=== PATIENT | male | born 1975 | race Caucasian/White ===

== ENCOUNTER 2016-12-12 10:59 | Emergency (ER) | payer BC, MEDICAID ==
[2016-12-12] MEDS ORDERED: Sodium Chloride 0.9% 1,000 ML IV ONE (11:43)
[2016-12-12] MEDS ORDERED: Alum Hydrox/Mag Hydrox/Simeth 15 ML, Lidocaine 2% 15 ML PO ONE ×2 (11:43)
[2016-12-12] MEDS ORDERED: Ondansetron 4 MG/2 ML SDV IVPUSH ONE (11:44)
[2016-12-12] MEDS ORDERED: Morphine 4 MG/ML Syringe IVPUSH ONE (11:44)
[2016-12-12] MEDS ORDERED: Sodium Chloride 0.9% 10 ML Syringe FLUSH PRN (11:44)
[2016-12-12 12:20] VITALS: BP 154/97
[2016-12-12] MEDS ORDERED: Iopamidol 612 MG/ML 150 ML Bottle IV PRN (12:26)
--- NOTE | 2016-12-12 12:33 | EDM.PDOC ---
ED HPI GENERAL MEDICAL PROBLEM - General Chief Complaint: Abdominal Pain Stated Complaint: STOMACH PAIN Time Seen by Provider: 12/12/16 11:30 Source of Information: Reports: Patient History Limitations: Reports: No Limitations - History of Present Illness INITIAL COMMENTS - FREE TEXT/NARRATIVE: Med is a 41 year old male who presents to the ED today with c/o abdominal pain and increased stomach acid for the last 2-3 weeks. Patient has been taking extra prilosec and tylenol without relief. Patient endorses some mild constipation, he denies any diarrhea or nausea/vomiting other than the stomach acid at night time. Patient denies any fever, chills. Patient has extensive abdominal hx including gastric bypass surgery [place] [address] Roland, he has also had a small bowel obstruction/intussusception and resection. Patient has hx of Cholecystectomy and appendectomy. Patient most recently had an incisional hernial repair. Left Middle Abdomen Pain Score (Numeric/FACES): 8 - Related Data Allergies Allergy/AdvReac Type Severity Reaction Status Date / Time No Known Allergies Allergy Verified 07/17/16 10:10 Home Meds: Home Meds Ca Carbonate/Vitamin D3/Vit K [Calcium + D Soft Chewable Tab] 1 each PO BID [History] Cyanocobalamin (Vitamin B-12) [Vitamin B-12] 1,000 mcg SL DAILY 09/22/13 [ History] Omeprazole [Prilosec] 40 mg PO BID 09/22/13 [History] Pedi Multivit #22/Vit D3/Vit K [Multivitamins Chewables Tablet] 1 each PO BID [History] Vitamin B Complex 1 tab PO DAILY 09/22/13 [History] Cholecalciferol (Vitamin D3) [Vitamin D3] 3,000 unit PO DAILY 07/17/16 [History] Diclofenac Sodium [Voltaren 1% Gel] 1 applic TP QID 07/17/16 [History] Iron,Carbonyl/Ascorbic Acid [Vitron-C Tablet] 1 tab PO DAILY 07/17/16 [History] Sertraline [Zoloft] 150 mg PO DAILY 07/17/16 [History] Magnesium Hydroxide [Milk of Magnesia] 30 ml PO DAILY #2 ml 07/23/16 [Rx] Sennosides/Docusate Sodium [Senna-S] 1 - 2 tab PO DAILY #100 tablet 07/23/16 [Rx ] Past Medical History HEENT History: Reports: Impaired Vision, Other (See Below) Other HEENT History: glasses. Ringing in the ears Respiratory History: Reports: Intubation, Previous Gastrointestinal History: Reports: Bowel Obstruction, Cholelithiasis, GERD, Hemorrhoids Musculoskeletal History: Reports: Arthritis, Back Pain, Chronic, Fracture Other Musculoskeletal History: left shoulder scapula fracture, no surgery rib nose finger Neurological History: Reports: Concussion, Migraines Psychiatric History: Reports: Anxiety, Depression, Panic Attack Endocrine/Metabolic History: Reports: Obesity/BMI 30+, Vitamin D Deficiency Hematologic History: Reports: Anemia, B12 Deficiency, Iron Deficiency Other Hematologic History: surgical related b12 def - takes b12 inj q month Dermatologic History: Reports: Other (See Below) Other Dermatologic History: Panniculectomy. tattoos - Infectious Disease History Infectious Disease History: Reports: Chicken Pox - Past Surgical History GI Surgical History: Reports: Appendectomy, Bariatric Procedure, Cholecystectomy , Colon, Colonoscopy, EGD, Hernia Repair/Other, Small Bowel Neurological Surgical History: Reports: None Social & Family History - Family History HEENT: Reports: None Cardiac: Reports: Hypertension, MS GI: Reports: None : Reports: None Musculoskeletal: Reports: Arthritis Neurological: Reports: None Psychiatric: Reports: None Endocrine/Metabolic: Reports: Diabetes, Type I Oncologic: Reports: Other (See Below) Other Oncologic Family History: unknown - Tobacco Use Smoking Status *Q: Former Smoker Years of Tobacco use: 15 Packs/Tins Daily: 1.5 Used Tobacco, but Quit: Yes Month Tobacco Last Used: many years ago Second Hand Smoke Exposure: Yes - Caffeine Use Caffeine Use: Reports: Coffee Other Caffeine Use: 1 cup coffee/day Caffeine Use Comment: 2 cups per day - Alcohol Use Days Per Week of Alcohol Use: 0 Number of Drinks Per Day: 2 Total Drinks Per Week: 0 - Recreational Drug Use Recreational Drug Use: No - Living Situation & Occupation Occupation: Employed ED ROS GENERAL - Review of Systems Review Of Systems: See Below Constitutional: Reports: Decreased Appetite HEENT: Reports: No Symptoms Respiratory: Reports: No Symptoms Cardiovascular: Reports: No Symptoms Endocrine: Reports: No Symptoms GI/Abdominal: Reports: Abdominal Pain, Constipation, Other (Increase in Gastric Acid) : Reports: No Symptoms Musculoskeletal: Reports: No Symptoms Skin: Reports: No Symptoms Neurological: Reports: No Symptoms Psychiatric: Reports: No Symptoms Hematologic/Lymphatic: Reports: No Symptoms Immunologic: Reports: No Symptoms, Seasonal Allergy ED EXAM, GI/ABD - Physical Exam Exam: See Below Exam Limited By: No Limitations General Appearance: Alert, WD/WN, No Apparent Distress Throat/Mouth: Normal Inspection, Normal Oropharynx Head: No: Sinus Tenderness Neck: Normal Inspection, Supple, Non-Tender Respiratory/Chest: No Respiratory Distress, Lungs Clear Cardiovascular: Normal Peripheral Pulses, Regular Rate, Rhythm GI/Abdominal: Normal Bowel Sounds, Soft, No Organomegaly, Tenderness (left upper quadrant, mild right upper quadrant). No: Non-Tender (Male) Exam: Deferred Rectal (Males) Exam: Deferred Extremities: Normal Inspection Neurological: Alert, Oriented, CN II-XII Intact Psychiatric: Normal Affect, Normal Mood Skin Exam: Warm, Dry, Intact. No: Pallor Lymphatic: No Adenopathy Course - Vital Signs Text/Narrative:: Med is a 41 year old male who presents to the ED today with c/o 2-3 week hx of abdominal pain. Please refer to HPI and focused exam. Patient on exam is well hydrated, he is non-toxic appearing. Concerns for bowel obstruction given constipation hx, although unlikely with lack of nausea/vomiting. Hiatal hernia a possibility, no hx of. Like GERD is playing a role. PIV established and patient was given a liter of NS. He was given zofran for nausea, morphine for abdominal pain and a GI cocktail for his acid reflux. Blood work obtained, CBC returns unremarkable with a normal white count and HGB, CMP rturns within normal limits. Lipase is normal. CT scan obtained secondary to Patient's extensive abdominal hx and is negative for any acute findings. It is likely that patient's GERD is playing a role is his symptoms today. Given his reassuring lab work and negative CT scan, I feel he is stable to be discharged home. I discussed with patient stopping his Prilosec and we will start a trial of Protonix. He can take Miralax for constipation which he already has at home. Patient did ask for "something stronger for pain". He reports he has Tylenol #4 at home, I informed patient I will not be prescribing him any narcotics today for his abdominal pain and if symptoms worsen he needs to return to the ED. I did ask patient to call Dr. Roland on Wednesday to schedule follow up appt. Patient is agreeable to plan of care and questions were answered prior to discharge. Patient discharged in stable condition. Last Recorded V/S: Last Vital Signs Temp 36.7 C 12/12/16 11:14 Pulse 81 12/12/16 11:14 Resp 16 12/12/16 11:14 BP 154/97 H 12/12/16 12:20 Pulse Ox 97 12/12/16 11:14 - Orders/Labs/Meds Orders: Active Orders 24 hr Category Date Time Status Peripheral IV Care [RC] . DIRECTED Care 12/12/16 11:44 Active Abdomen Pelvis w Cont [CT] Stat Exams 12/12/16 11:45 Taken Iopamidol [Isovue-300 (61%)] Med 12/12/16 12:26 Active 141 ml IV . DIRECTED PRN Sodium Chloride 0.9% [Normal Saline] 83 ml Med 12/12/16 12:30 Active IV ASDIRECTED Sodium Chloride 0.9% [Saline Flush] Med 12/12/16 11:44 Active 10 ml FLUSH ASDIRECTED PRN Peripheral IV Insertion Adult [OM.PC] Routine Oth 12/12/16 11:44 Ordered Medication Orders Sodium Chloride (Normal Saline) 83 mls @ 3.5 mls/sec IV ASDIRECTED LIEN Last Admin: 12/12/16 12:43 Dose: 3.5 mls/sec Iopamidol (Isovue-300 (61%)) 141 ml IV . DIRECTED PRN PRN Reason: RADIOLOGY EXAM Stop: 12/13/16 12:27 Last Admin: 12/12/16 12:43 Dose: 141 ml Sodium Chloride (Saline Flush) 10 ml FLUSH ASDIRECTED PRN PRN Reason: Keep Vein Open Last Admin: 12/12/16 12:19 Dose: 10 ml Labs: Laboratory Tests 12/12/16 12/12/16 Range/Units 11:44 12:00 WBC 6.1 (4.5-11.0) K/uL RBC 5.19 (4.30-5.90) M/uL Hgb 13.8 (12.0-15.0) g/dL Hct 42.9 (40.0-54.0) % MCV 83 (80-98) fL MCH 27 (27-31) pg MCHC 32 (32-36) % Plt Count 331 (150-400) K/uL Neut % (Auto) 64 (36-66) % Lymph % (Auto) 29 (24-44) % [place] % (Auto) 6 (2-6) % Eos % (Auto) 1 L (2-4) % Baso % (Auto) 1 (0-1) % Sodium 143 (140-148) mmol/L Potassium 4.1 (3.6-5.2) mmol/L Chloride 106 (100-108) mmol/L Carbon Dioxide 26 (21-32) mmol/L Anion Gap 10.6 (5.0-14.0) mmol/L BUN 15 (7-18) mg/dL Creatinine 0.8 (0.8-1.3) mg/dL Est Cr Clr Drug Dosing 110.76 mL/min Estimated GFR (MDRD) > 60 (>60) Glucose 85 (74-106) mg/dL Calcium 9.2 (8.5-10.1) mg/dL Total Bilirubin 0.2 (0.2-1.0) mg/dL AST 24 (15-37) U/L ALT 40 (12-78) U/L Alkaline Phosphatase 108 (46-116) U/L Total Protein 7.6 (6.4-8.2) g/dL Albumin 4.0 (3.4-5.0) g/dL Globulin 3.6 H (2.3-3.5) g/dL Albumin/Globulin Ratio 1.1 L (1.2-2.2) Lipase 209 (73-393) U/L Meds: Medications Generic Name Dose Route Start Last Admin Trade Name Freq PRN Reason Stop Dose Admin Sodium Chloride 83 mls @ 3.5 mls/sec 12/12/16 12:30 12/12/16 12:43 Normal Saline IV 3.5 mls/sec ASDIRECTED LIEN Administration Iopamidol 141 ml 12/12/16 12:26 12/12/16 12:43 Isovue-300 (61%) IV 12/13/16 12:27 141 ml . DIRECTED PRN Administration RADIOLOGY EXAM Sodium Chloride 10 ml 12/12/16 11:44 12/12/16 12:19 Saline Flush FLUSH 10 ml ASDIRECTED PRN Administration Keep Vein Open Discontinued Medications Generic Name Dose Route Start Last Admin Trade Name Freq PRN Reason Stop Dose Admin Al Hydroxide/Mg Hydroxide 15 0 ml 12/12/16 11:43 12/12/16 12:10 ml/ Lidocaine HCl 15 ml PO 12/12/16 11:44 30 ml ONETIME ONE Administration Sodium Chloride 1,000 mls @ 999 mls/hr 12/12/16 11:43 12/12/16 12:18 Normal Saline IV 12/12/16 12:43 999 mls/hr .BOLUS ONE Administration Morphine Sulfate 4 mg 12/12/16 11:44 12/12/16 12:11 Morphine IVPUSH 12/12/16 11:45 4 mg ONETIME ONE Administration Ondansetron HCl 4 mg 12/12/16 11:44 12/12/16 12:11 Zofran IVPUSH 12/12/16 11:45 4 mg ONETIME ONE Administration Departure - Departure Time of Disposition: 14:00 Disposition: Admitted As Inpatient 67 Condition: Good Clinical Impression: Abdominal pain of unknown cause GERD (gastroesophageal reflux disease) Qualifiers: Esophagitis presence: esophagitis presence not specified Qualified Code(s): K21.9 - Gastro-esophageal reflux disease without esophagitis - Discharge Information Instructions: Abdominal Pain, Adult, [id number], Constipation, Adult, Easy-to -Read, Gastroesophageal Reflux Disease, Adult Referrals: Jovanni Hutchison MD [Primary Care Provider] - Forms: ED Department Discharge Additional Instructions: Stop the Prilosec Start Protonix Stay well hydrated. Take Miralax for constipation Call Dr. Roland on Wednesday to schedule follow up appointment. Return to the ED with any complications. - My Orders Last 24 Hours: My Active Orders 12/12/16 11:44 Peripheral IV Care [RC] . DIRECTED Sodium Chloride 0.9% [Saline Flush] 10 ml FLUSH ASDIRECTED PRN Peripheral IV Insertion Adult [OM.PC] Routine 12/12/16 11:45 Abdomen Pelvis w Cont [CT] Stat 12/12/16 12:26 Iopamidol [Isovue-300 (61%)] 141 ml IV . DIRECTED PRN 12/12/16 12:30 Sodium Chloride 0.9% [Normal Saline] 83 ml IV ASDIRECTED - Assessment/Plan Last 24 Hours: My Active Orders 12/12/16 11:44 Peripheral IV Care [RC] . DIRECTED Sodium Chloride 0.9% [Saline Flush] 10 ml FLUSH ASDIRECTED PRN Peripheral IV Insertion Adult [OM.PC] Routine 12/12/16 11:45 Abdomen Pelvis w Cont [CT] Stat 12/12/16 12:26 Iopamidol [Isovue-300 (61%)] 141 ml IV . DIRECTED PRN 12/12/16 12:30 Sodium Chloride 0.9% [Normal Saline] 83 ml IV ASDIRECTED
== END 2016-12-12 13:55 | disposition critical access hospital (66) ==
LOC: JP.ED 10:59
DX: R10.9 Unspecified abdominal pain (principal); K21.9 Gastro-esophageal reflux disease without esophagitis; Z98.890 Other specified postprocedural states; Z79.899 Other long term (current) drug therapy; D64.9 Anemia, unspecified; E53.8 Deficiency of other specified B group vitamins; E61.1 Iron deficiency; Z98.84 Bariatric surgery status; F41.9 Anxiety disorder, unspecified; F32.9 Major depressive disorder, single episode, unspecified; Z87.891 Personal history of nicotine dependence
CPT/HCPCS: 36415; 74177; 80053; 83690; 85025; 96361; 96374; 96375; 99285; A9270; J2270; J2405; J7030; J7040; J7050

== ENCOUNTER 2017-01-08 08:40 | Day surgery (SDC) | payer MEDICAID ==
[2017-01-08] MEDS ORDERED: diphenhydrAMINE 50 MG/ML SDV IVPUSH PRN (08:54)
[2017-01-08] MEDS ORDERED: Dextrose 5%-Lactated Ringers 1,000 ML IV SCH (09:15)
[2017-01-08] MEDS ORDERED: Propofol 200 MG/20 ML SDV ONE ×2 (09:27→10:48)
[2017-01-08] MEDS ORDERED: fentaNYL 100 MCG/2 ML SDV ONE (09:27)
[2017-01-08] MEDS ORDERED: Midazolam 1 MG/ML 2 ML SDV ONE (09:27)
[2017-01-08] MEDS: Glycopyrrolate 0.2 MG/ML 2 ML SDV IVPUSH ONE ×2 (09:43→10:30)
[2017-01-08] MEDS ORDERED: Hydrocortisone Sodium Succinate 100 MG/2 ML SDV IVPUSH PRN (11:00)
[2017-01-08] MEDS ORDERED: Famotidine 20 MG/2 ML SDV IVPUSH PRN (11:00)
[2017-01-08 12:34] VITALS: BP 98/57
--- NOTE | 2017-01-11 10:38 | OR ---
DATE OF PROCEDURE: 01/08/2017 PREOPERATIVE DIAGNOSIS: Iron deficiency anemia. POSTOPERATIVE DIAGNOSES: 1. Iron deficiency anemia associated with no bleeding source identified on upper GI endoscopy or colonoscopy. 2. Probable partial small bowel obstruction (bile within Lili limb). OPERATIVE PROCEDURES: 1. Upper GI endoscopy with biopsies of gastric pouch for CLOtest. 2. Flexible colonoscopy. ANESTHESIA: IV sedation. INDICATION FOR PROCEDURE: This 41-year-old male presented with some ongoing iron deficiency anemia with ferritin today of 7. The plan is to proceed with upper and lower endoscopy to try to identify any GI tract bleeding site. Potential risks of the procedure including bleeding and perforation were discussed, and the patient wishes to proceed. DETAILS OF PROCEDURE: The patient was taken to the operating room and placed in a left lateral decubitus position. IV sedation was administered, after which the upper GI endoscope was passed orally through the length of the esophagus into the gastric pouch, from there through the gastrojejunostomy roughly 30 cm into the Lili limb. Overall, the upper end of GI endoscope showed no areas of inflammation, reddening, or any likely bleeding source with the mucosa all being intact and not inflamed. The only positive finding on this exam was that of some bile pooling within the Lili limb beginning around 10 or 15 cm from the gastrojejunostomy. This would be indicative of possible partial bowel obstruction with the bile backing up through the Lili limb. Biopsies were obtained from the gastric pouch and sent for CLOtest for H. pylori. Minimal bleeding from the biopsy sites was seen, and the procedure then concluded. Attention was then taken to the colonoscopy. The initial digital rectal exam was performed and was unremarkable. Colonoscope was passed to the level of the cecum. The prep was fair with there being a fair bit of liquid and solid stool present, but the vast majority of the surfaces were adequately seen, and there were otherwise no abnormalities nowhere noted. The scope was then withdrawn, the above findings were reconfirmed, and the procedure was then concluded. The patient will be following up with Haven Regalado in [facility] on 02/09/2017. The patient is receiving a Feraheme infusion of 510 mg of the iron today and we will schedule to have a repeat one done a few days from now. He will be seen in followup in [place] as noted above and will obtain a ferritin and hemoglobin at that time. This is a case that if he continues to show signs of GI blood loss, one would need to consider possible bleeding from the bypassed portion of the stomach and/or duodenum. Additional areas noted above, the patient probably has some degree of partial small bowel obstruction with the bowel backing up, but at this time, this probably falls short of needing an operative intervention. Trey Roland MD /[id number]
== END 2017-01-08 13:20 | disposition home or self-care (01) ==
LOC: JP.SDS 08:40
PROVIDERS: ATTEND Surgery
DX: D50.9 Iron deficiency anemia, unspecified (principal); K90.9 Intestinal malabsorption, unspecified; Z98.84 Bariatric surgery status
CPT/HCPCS: 43239; 45378; 87081; J2250; J2704; J3010; J7030; J7042; Q0138; J3490

== ENCOUNTER 2017-04-21 14:30 | Inpatient (IN) | payer MEDICAID ==
[2017-04-21] MEDS ORDERED: Sodium Chloride 0.9% 10 ML Syringe FLUSH PRN (16:56)
[2017-04-21] MEDS ORDERED: Iopamidol 612 MG/ML 150 ML Bottle IV SCH (17:00)
[2017-04-21] MEDS ORDERED: Sodium Chloride 0.9% 80 ML IV SCH (17:00)
--- NOTE | 2017-04-21 18:09 | EDM.PDOC ---
ED HPI GENERAL MEDICAL PROBLEM - General Chief Complaint: Abdominal Pain Stated Complaint: RUQ ABDOMINAL PAIN Time Seen by Provider: 04/21/17 15:51 Source of Information: Reports: Patient History Limitations: Reports: No Limitations - History of Present Illness INITIAL COMMENTS - FREE TEXT/NARRATIVE: This gentleman comes in for right upper quadrant abdominal pain. He said it's been going on a little bit for the past couple of weeks. Last night at about 7 PM it suddenly became very bad it's constant it's seems to have started after eating. He got nauseated but has not vomited. Started after eating beans and ham last night. He had a a Lili-en-Y a couple of years ago and shortly afterward had a cholecystectomy. He denies any fever. Had a bowel movement earlier today said it looked kind of dark but not black Right Upper Abdomen Pain Score (Numeric/FACES): 8 - Related Data Allergies Allergy/AdvReac Type Severity Reaction Status Date / Time No Known Allergies Allergy Verified 04/21/17 15:20 Home Meds: Home Meds Ca Carbonate/Vitamin D3/Vit K [Calcium + D Soft Chewable Tab] 1 each PO BID [History] Cyanocobalamin (Vitamin B-12) [Vitamin B-12] 1,000 mcg SL DAILY 09/22/13 [ History] Omeprazole [Prilosec] 40 mg PO BID 09/22/13 [History] Pedi Multivit #22/Vit D3/Vit K [Multivitamins Chewables Tablet] 1 each PO BID [History] Vitamin B Complex 1 tab PO DAILY 09/22/13 [History] Cholecalciferol (Vitamin D3) [Vitamin D3] 3,000 unit PO DAILY 07/17/16 [History] Diclofenac Sodium [Voltaren 1% Gel] 1 applic TP QID PRN 07/17/16 [History] Iron,Carbonyl/Ascorbic Acid [Vitron-C Tablet] 1 tab PO DAILY 07/17/16 [History] Sertraline [Zoloft] 150 mg PO DAILY 07/17/16 [History] Magnesium Hydroxide [Milk of Magnesia] 30 ml PO DAILY #2 ml 07/23/16 [Rx] Sennosides/Docusate Sodium [Senna-S] 1 - 2 tab PO DAILY #100 tablet 07/23/16 [Rx ] Acetaminophen with Codeine [Tylenol with Codeine #4 Tablet] 1 tab PO Q6H PRN 07/24 [History] Cyclobenzaprine [Flexeril] 10 mg PO TID PRN 01/06/17 [History] Past Medical History HEENT History: Reports: Impaired Vision, Other (See Below) Other HEENT History: glasses. Ringing in the ears Respiratory History: Reports: Intubation, Previous Gastrointestinal History: Reports: Bowel Obstruction, Cholelithiasis, GERD, Hemorrhoids Musculoskeletal History: Reports: Arthritis, Back Pain, Chronic, Fracture Other Musculoskeletal History: left shoulder scapula fracture, no surgery rib nose finger Neurological History: Reports: Concussion, Migraines Psychiatric History: Reports: Anxiety, Depression, Panic Attack Endocrine/Metabolic History: Reports: Obesity/BMI 30+, Vitamin D Deficiency Hematologic History: Reports: Anemia, B12 Deficiency, Iron Deficiency Other Hematologic History: surgical related b12 def - takes b12 inj q month Oncologic (Cancer) History: Reports: None Dermatologic History: Reports: Other (See Below) Other Dermatologic History: Panniculectomy. tattoos - Infectious Disease History Infectious Disease History: Reports: Chicken Pox - Past Surgical History GI Surgical History: Reports: Appendectomy, Bariatric Procedure, Cholecystectomy , Colon, Colonoscopy, EGD, Hernia Repair/Other, Small Bowel Neurological Surgical History: Reports: None Social & Family History - Family History HEENT: Reports: None Cardiac: Reports: Hypertension, [place] GI: Reports: None : Reports: None Musculoskeletal: Reports: Arthritis Neurological: Reports: None Psychiatric: Reports: None Endocrine/Metabolic: Reports: Diabetes, Type I Oncologic: Reports: Other (See Below) Other Oncologic Family History: unknown - Tobacco Use Smoking Status *Q: Former Smoker Years of Tobacco use: 15 Packs/Tins Daily: 1 Used Tobacco, but Quit: Yes Month Tobacco Last Used: November Second Hand Smoke Exposure: No - Caffeine Use Caffeine Use: Reports: Coffee Other Caffeine Use: 1 cup coffee/day Caffeine Use Comment: Drinks about 16 ounces of coffee daily - Alcohol Use Days Per Week of Alcohol Use: 0 Number of Drinks Per Day: 2 Total Drinks Per Week: 0 - Recreational Drug Use Recreational Drug Use: No - Living Situation & Occupation Occupation: Employed ED ROS GENERAL - Review of Systems Review Of Systems: ROS reveals no pertinent complaints other than HPI. ED EXAM, GI/ABD - Physical Exam Exam: See Below Exam Limited By: No Limitations General Appearance: Alert, Moderate Distress, Obese Eyes: Bilateral: Normal Appearance Nose: Normal Inspection Neck: Normal Inspection Respiratory/Chest: Lungs Clear Cardiovascular: Regular Rate, Rhythm, No Murmur GI/Abdominal Exam: Normal Bowel Sounds, Soft, Other (Fullness in right upper quadrant moderately tender increased resonance seems like it could be an obstruction) Back Exam: Normal Inspection Extremities: Normal Inspection Neurological: Alert, Oriented, No Motor/Sensory Deficits Psychiatric: Normal Affect Skin Exam: Warm, Dry Course - Vital Signs Last Recorded V/S: Last Vital Signs Temp 35.7 C 04/21/17 15:30 Pulse 92 04/21/17 15:30 Resp 16 04/21/17 15:30 BP 136/89 04/21/17 15:30 Pulse Ox 98 04/21/17 15:30 - Orders/Labs/Meds Orders: Active Orders 24 hr Category Date Time Status Abdomen Pelvis w Cont [CT] Stat Exams 04/21/17 16:53 Taken Iopamidol [Isovue-300 (61%)] Med 04/21/17 17:00 Active 142 ml IV . DIRECTED Sodium Chloride 0.9% [Normal Saline] 80 ml Med 04/21/17 17:00 Active IV ASDIRECTED Sodium Chloride 0.9% [Saline Flush] Med 04/21/17 16:56 Active 10 ml FLUSH ASDIRECTED PRN Medication Orders Sodium Chloride (Normal Saline) 80 mls @ 3 mls/sec IV ASDIRECTED LIEN Last Admin: 04/21/17 17:08 Dose: 3 mls/sec Iopamidol (Isovue-300 (61%)) 142 ml IV . DIRECTED LIEN Last Admin: 04/21/17 17:08 Dose: 142 ml Sodium Chloride (Saline Flush) 10 ml FLUSH ASDIRECTED PRN PRN Reason: Keep Vein Open Last Admin: 04/21/17 17:05 Dose: 10 ml Labs: Laboratory Tests 04/21/17 04/21/17 04/21/17 Range/Units 16:36 16:36 16:36 WBC 6.0 (4.5-11.0) K/uL RBC 5.15 (4.30-5.90) M/uL Hgb 16.0 H D (12.0-15.0) g/dL Hct 46.5 (40.0-54.0) % MCV 90 (80-98) fL MCH 31 (27-31) pg MCHC 34 (32-36) % Plt Count 278 (150-400) K/uL Neut % (Auto) 60 (36-66) % Lymph % (Auto) 30 (24-44) % Kaufman % (Auto) 8 H (2-6) % Eos % (Auto) 2 (2-4) % Baso % (Auto) 0 (0-1) % Sodium 143 (140-148) mmol/L Potassium 4.4 (3.6-5.2) mmol/L Chloride 104 (100-108) mmol/L Carbon Dioxide 32 (21-32) mmol/L Anion Gap 6.7 (5.0-14.0) mmol/L BUN 12 (7-18) mg/dL Creatinine 0.8 (0.8-1.3) mg/dL Est Cr Clr Drug Dosing 109.66 mL/min Estimated GFR (MDRD) > 60 (>60) Glucose 92 (74-106) mg/dL Calcium 9.7 (8.5-10.1) mg/dL Total Bilirubin 0.5 D (0.2-1.0) mg/dL AST 193 H D (15-37) U/L ALT 295 H (12-78) U/L Alkaline Phosphatase 124 H (46-116) U/L Total Protein 7.0 (6.4-8.2) g/dL Albumin 4.1 (3.4-5.0) g/dL Globulin 2.9 (2.3-3.5) g/dL Albumin/Globulin Ratio 1.4 (1.2-2.2) Amylase 41 (25-115) U/L Lipase 215 (73-393) U/L Urine Color Urine Appearance Urine pH (4.5-8.0) Ur Specific Burton (1.008-1.030) Urine Protein (NEGATIVE) mg/dL Urine Glucose (UA) (NEGATIVE) mg/dL Urine Ketones (NEGATIVE) mg/dL Urine Occult Blood (NEGATIVE) Urine Nitrite (NEGAITVE) Urine Bilirubin (NEGATIVE) Urine Urobilinogen (NORMAL) mg/dL Ur Leukocyte Esterase (NEGATIVE) Urine RBC (0-5) Urine WBC (0-5) Ur Epithelial Cells Amorphous Sediment Urine Bacteria Urine Mucus 04/21/17 Range/Units 16:59 WBC (4.5-11.0) K/uL RBC (4.30-5.90) M/uL Hgb (12.0-15.0) g/dL Hct (40.0-54.0) % MCV (80-98) fL MCH (27-31) pg MCHC (32-36) % Plt Count (150-400) K/uL Neut % (Auto) (36-66) % Lymph % (Auto) (24-44) % Kaufman % (Auto) (2-6) % Eos % (Auto) (2-4) % Baso % (Auto) (0-1) % Sodium (140-148) mmol/L Potassium (3.6-5.2) mmol/L Chloride (100-108) mmol/L Carbon Dioxide (21-32) mmol/L Anion Gap (5.0-14.0) mmol/L BUN (7-18) mg/dL Creatinine (0.8-1.3) mg/dL Est Cr Clr Drug Dosing mL/min Estimated GFR (MDRD) (>60) Glucose (74-106) mg/dL Calcium (8.5-10.1) mg/dL Total Bilirubin (0.2-1.0) mg/dL AST (15-37) U/L ALT (12-78) U/L Alkaline Phosphatase (46-116) U/L Total Protein (6.4-8.2) g/dL Albumin (3.4-5.0) g/dL Globulin (2.3-3.5) g/dL Albumin/Globulin Ratio (1.2-2.2) Amylase (25-115) U/L Lipase (73-393) U/L Urine Color Yellow Urine Appearance Clear Urine pH 6.5 (4.5-8.0) Ur Specific Burton 1.015 (1.008-1.030) Urine Protein Negative (NEGATIVE) mg/dL Urine Glucose (UA) Normal (NEGATIVE) mg/dL Urine Ketones Negative (NEGATIVE) mg/dL Urine Occult Blood Negative (NEGATIVE) Urine Nitrite Negative (NEGAITVE) Urine Bilirubin Negative (NEGATIVE) Urine Urobilinogen Normal (NORMAL) mg/dL Ur Leukocyte Esterase Negative (NEGATIVE) Urine RBC Not seen (0-5) Urine WBC Not seen (0-5) Ur Epithelial Cells Rare Amorphous Sediment Not seen Urine Bacteria Rare Urine Mucus Not seen Meds: Medications Generic Name Dose Route Start Last Admin Trade Name Freq PRN Reason Stop Dose Admin Sodium Chloride 80 mls @ 3 mls/sec 04/21/17 17:00 04/21/17 17:08 Normal Saline IV 3 mls/sec ASDIRECTED LIEN Administration Iopamidol 142 ml 04/21/17 17:00 04/21/17 17:08 Isovue-300 (61%) IV 142 ml . DIRECTED LIEN Administration Sodium Chloride 10 ml 04/21/17 16:56 04/21/17 17:05 Saline Flush FLUSH 10 ml ASDIRECTED PRN Administration Keep Vein Open - Radiology Interpretation Free Text/Narrative:: Abdominal CT shows surgical changes but no acute pathology - Re-Assessments/Exams Free Text/Narrative Re-Assessment/Exam: 04/21/17 18:[address] Trey Roland and he agrees this is probably a common bile duct stone. Patient was given the option of being sent off to [facility] or the [facility] versus having an open procedure here by Dr. Roland. Patient chooses to have the open procedure. Dr. Roland has given orders to admit this patient and I believe he is getting ultrasound of the common bile duct Departure - Departure Time of Disposition: 18:50 Disposition: Admitted As Inpatient 67 Condition: Fair Clinical Impression: Common bile duct calculus - Discharge Information Referrals: Jovanni Hutchison MD [Primary Care Provider] - Forms: ED Department Discharge - My Orders Last 24 Hours: My Active Orders 04/21/17 16:53 Abdomen Pelvis w Cont [CT] Stat 04/21/17 16:56 Sodium Chloride 0.9% [Saline Flush] 10 ml FLUSH ASDIRECTED PRN 04/21/17 17:00 Iopamidol [Isovue-300 (61%)] 142 ml IV . DIRECTED Sodium Chloride 0.9% [Normal Saline] 80 ml IV ASDIRECTED - Assessment/Plan Last 24 Hours: My Active Orders 04/21/17 16:53 Abdomen Pelvis w Cont [CT] Stat 04/21/17 16:56 Sodium Chloride 0.9% [Saline Flush] 10 ml FLUSH ASDIRECTED PRN 04/21/17 17:00 Iopamidol [Isovue-300 (61%)] 142 ml IV . DIRECTED Sodium Chloride 0.9% [Normal Saline] 80 ml IV ASDIRECTED
[2017-04-21] MEDS ORDERED: Ondansetron 4 MG/2 ML SDV IVPUSH PRN (20:22)
[2017-04-21] MEDS ORDERED: HYDROmorphone/Normal Saline 15 MG/30 ML PCA IV SCH (20:30)
[2017-04-21] MEDS ORDERED: hydrOXYzine HCl 100 MG/2 ML SDV IM ONE (22:07)
[2017-04-21] MEDS ORDERED: Meperidine PF 100 MG/ML Syringe IM ONE (22:07)
[2017-04-21] MEDS: Dextrose 5%-Lactated Ringers 1,000 ML IV SCH (23:00)
[2017-04-22] MEDS ORDERED: Lidocaine 2% Jelly 10 ML Urojet MUCMEM ONE (05:23)
[2017-04-22] MEDS: Dextrose 5%-Lactated Ringers 1,000 ML IV SCH ×2 (05:32→14:27)
[2017-04-22] MEDS ORDERED: Pantoprazole 40 MG Vial IVPUSH SCH (07:30)
[2017-04-22] MEDS ORDERED: Naloxone 0.4 MG/ML SDV IV PRN (07:56)
[2017-04-22] MEDS: Tamsulosin 0.4 MG Cap.ER PO SCH ×2 (08:51→16:54)
--- NOTE | 2017-04-22 09:14 | PCM.HP ---
H&P History of Present Illness - General Date of Service: 04/22/17 Admit Problem/Dx: Admission Diagnosis/Problem Admission Diagnosis/Problem Abdominal pain Med called the clinic yesterday stating he had right upper quadrant abdominal pain that didn't radiate. The pain started on 04/20/17 and has been steadily getting worse. He is taking Tylenol #4 on a regular basis. Source of Information: Patient History Limitations: Reports: Altered Mental Status (on pain medication) - History of Present Illness Onset of Symptoms: Reports: Gradual Duration of Symptoms: Reports: Getting Worse Location: Reports: Abdomen Quality: Reports: Pressure, Stabbing, Throbbing Improves with: Reports: Medication (VALUE ENGINEER pain medication) Worsens with: Reports: Eating, Movement Associated Symptoms: Reports: No Other Symptoms Right Upper Abdomen Pain Score (Numeric/FACES): 2 (With pain medication) - Related Data Allergies/Adverse Reactions: Allergies Allergy/AdvReac Type Severity Reaction Status Date / Time No Known Allergies Allergy Verified 04/21/17 15:20 Home Medications: Home Meds Ca Carbonate/Vitamin D3/Vit K [Calcium + D Soft Chewable Tab] 1 each PO BID [History] Cyanocobalamin (Vitamin B-12) [Vitamin B-12] 1,000 mcg SL DAILY 09/22/13 [ History] Omeprazole [Prilosec] 40 mg PO BID 09/22/13 [History] Pedi Multivit #22/Vit D3/Vit K [Multivitamins Chewables Tablet] 1 each PO BID [History] Vitamin B Complex 1 tab PO DAILY 09/22/13 [History] Cholecalciferol (Vitamin D3) [Vitamin D3] 3,000 unit PO DAILY 07/17/16 [History] Diclofenac Sodium [Voltaren 1% Gel] 1 applic TP QID PRN 07/17/16 [History] Iron,Carbonyl/Ascorbic Acid [Vitron-C Tablet] 1 tab PO DAILY 07/17/16 [History] Sertraline [Zoloft] 150 mg PO DAILY 07/17/16 [History] Magnesium Hydroxide [Milk of Magnesia] 30 ml PO DAILY #2 ml 07/23/16 [Rx] Sennosides/Docusate Sodium [Senna-S] 1 - 2 tab PO DAILY #100 tablet 07/23/16 [Rx ] Acetaminophen with Codeine [Tylenol with Codeine #4 Tablet] 1 tab PO Q6H PRN 07/24 [History] Cyclobenzaprine [Flexeril] 10 mg PO TID PRN 01/06/17 [History] Past Medical History HEENT History: Reports: Impaired Vision, Other (See Below) Other HEENT History: glasses. Ringing in the ears Respiratory History: Reports: Intubation, Previous Gastrointestinal History: Reports: Bowel Obstruction, Cholelithiasis, GERD, Hemorrhoids Musculoskeletal History: Reports: Arthritis, Back Pain, Chronic, Fracture Other Musculoskeletal History: left shoulder scapula fracture, no surgery rib nose finger Neurological History: Reports: Concussion, Migraines Psychiatric History: Reports: Anxiety, Depression, Panic Attack Endocrine/Metabolic History: Reports: Obesity/BMI 30+, Vitamin D Deficiency Hematologic History: Reports: Anemia, B12 Deficiency, Iron Deficiency Other Hematologic History: surgical related b12 def - takes b12 inj q month Oncologic (Cancer) History: Reports: None Dermatologic History: Reports: Other (See Below) Other Dermatologic History: Panniculectomy. tattoos - Infectious Disease History Infectious Disease History: Reports: Chicken Pox - Past Surgical History GI Surgical History: Reports: Appendectomy, Bariatric Procedure, Cholecystectomy , Colon, Colonoscopy, EGD, Hernia Repair/Other, Small Bowel Neurological Surgical History: Reports: None Social & Family History - Family History HEENT: Reports: None Cardiac: Reports: Hypertension, [place] GI: Reports: None : Reports: None Musculoskeletal: Reports: Arthritis Neurological: Reports: None Psychiatric: Reports: None Endocrine/Metabolic: Reports: Diabetes, Type I Oncologic: Reports: Other (See Below) Other Oncologic Family History: unknown - Tobacco Use Smoking Status *Q: Never Smoker Years of Tobacco use: 15 Packs/Tins Daily: 1 Used Tobacco, but Quit: Yes Month Tobacco Last Used: November Second Hand Smoke Exposure: Yes - Caffeine Use Caffeine Use: Reports: Coffee Other Caffeine Use: 1 cup coffee/day Caffeine Use Comment: Drinks about 16 ounces of coffee daily - Alcohol Use Days Per Week of Alcohol Use: 0 Number of Drinks Per Day: 2 Total Drinks Per Week: 0 - Recreational Drug Use Recreational Drug Use: No - Living Situation & Occupation Occupation: Employed H&P Review of Systems - Review of Systems: Review Of Systems: See Below General: Reports: Fatigue, Decreased Appetite HEENT: Reports: No Symptoms Pulmonary: Reports: No Symptoms Cardiovascular: Reports: No Symptoms Gastrointestinal: Reports: Abdominal Pain, Decreased Appetite Genitourinary: Reports: No Symptoms Musculoskeletal: Reports: Arm Pain, Back Pain, Joint Pain Skin: Reports: No Symptoms Psychiatric: Reports: Depression Neurological: Reports: No Symptoms Hematologic/Lymphatic: Reports: Anemia (history of anemia) Immunologic: Reports: No Symptoms Exam - Exam Exam: See Below - Vital Signs Vital Signs: Last Vital Signs Temp 96.7 F 04/22/17 07:40 Pulse 71 04/22/17 07:40 Resp 16 04/22/17 07:40 BP 120/63 04/22/17 07:40 Pulse Ox 92 L 04/22/17 07:47 Weight: 200 lb 7 oz - Exam Quality Assessment: Urinary Catheter, DVT Prophylaxis General: Sedated, Lethargic HEENT: PERRLA Neck: Supple, Trachea Midline Lungs: Clear to Auscultation, Normal Respiratory Effort Cardiovascular: Regular Rate, Regular Rhythm GI/Abdominal Exam: Soft, Tender (right upper quadrant) (Male) Exam: Deferred Rectal (Males) Exam: Deferred Extremities: Normal Inspection Skin: Warm, Dry, Intact Neurological: Cranial Nerves Intact Neuro Extensive - Mental Status: Alert, Slow Response to Commands Neuro Extensive - Motor, Sensory, Reflexes: CN II-XII Intact Psychiatric: Labile Mood - Patient Data Lab Results Last 24 hrs: Laboratory Results - last 24 hr 04/22/17 04/22/17 Range/Units 03:30 03:30 WBC 4.4 L (4.5-11.0) K/uL RBC 4.78 (4.30-5.90) M/uL Hgb 14.9 (12.0-15.0) g/dL Hct 43.1 (40.0-54.0) % MCV 90 (80-98) fL MCH 31 (27-31) pg MCHC 35 (32-36) % Plt Count 170 (150-400) K/uL Sodium 140 (140-148) mmol/L Potassium 3.9 (3.6-5.2) mmol/L Chloride 103 (100-108) mmol/L Carbon Dioxide 29 (21-32) mmol/L Anion Gap 8.0 (5.0-14.0) mmol/L BUN 12 (7-18) mg/dL Creatinine 0.7 L (0.8-1.3) mg/dL Est Cr Clr Drug Dosing 125.32 mL/min Estimated GFR (MDRD) > 60 (>60) Glucose 55 L (74-106) mg/dL Calcium 9.3 (8.5-10.1) mg/dL Phosphorus 5.1 H (2.5-4.9) mg/dL Magnesium 2.1 (1.8-2.4) mg/dL Total Bilirubin 0.7 (0.2-1.0) mg/dL AST 647 H D (15-37) U/L ALT 594 H (12-78) U/L Alkaline Phosphatase 177 H (46-116) U/L Total Protein 6.5 (6.4-8.2) g/dL Albumin 3.8 (3.4-5.0) g/dL Globulin 2.7 (2.3-3.5) g/dL Albumin/Globulin Ratio 1.4 (1.2-2.2) Result Diagrams: 04/22/17 03:30 04/22/17 03:30 *Q Meaningful Use (ADM) - VTE *Q VTE Criteria *Q: - Stroke *Q Stroke Criteria *Q: - AMI *Q AMI Criteria *Q: - Problem List (1) Common bile duct calculus SNOMED Code(s): 731427015 ICD Code: K80.50 - CALCULUS OF BILE DUCT W/O CHOLANGITIS OR CHOLECYST W/O OBST Status: Acute Current Visit: Yes (2) Opioid use agreement exists SNOMED Code(s): 382639420 ICD Code: Z02.89 - ENCOUNTER FOR OTHER ADMINISTRATIVE EXAMINATIONS Status: Chronic Current Visit: No Onset Date: ~11/25/16 Problem List Initiated/Reviewed/Updated: Yes Orders Last 24hrs: Active Orders 24 hr Category Date Time Status Ambulate [RC] QID Care 04/21/17 20:18 Active Communication Order [RC] ROUTINE Care 04/22/17 07:28 Active Parkinson Catheter Insertion [Insert Urinary Catheter] [OM. Care 04/22/17 05:30 Ordered PC] Q24H Urinary Catheter Assessment [RC] ASDIRECTED Care 04/22/17 05:30 Active Vital Signs [RC] Q4H Care 04/21/17 20:18 Active NPO After Midnight [Nothing per Oral After Midnight Diet 04/22/17 Breakfast Active Diet] [DIET] Cholangiopancreatography [MR] Routine Exams 04/22/17 07:00 Ordered AMYLASE [CHEM] Routine Lab 04/23/17 04:00 Ordered CBC W/O DIFF,HEMOGRAM [HEME] Timed Lab 04/23/17 04:00 Ordered COMPREHENSIVE METABOLIC PN,CMP [CHEM] Timed Lab 04/23/17 04:00 Ordered LIPASE [CHEM] Routine Lab 04/23/17 04:00 Ordered MAGNESIUM [CHEM] Timed Lab 04/23/17 04:00 Ordered PHOSPHORUS [CHEM] Timed Lab 04/23/17 04:00 Ordered Dextrose 5%-Lactated Ringers 1,000 ml Med 04/21/17 20:30 Active IV ASDIRECTED FLU Vacc [id number] 36Mos UP/PF [Fluzone Quad [id number]] Med 04/22/17 23:45 Once 60 mcg IM .ONCE ONE HYDROmorphone/Normal Saline [Dilaudid VALUE ENGINEER 15 MG in NS Med 04/22/17 07:55 Active 30 ML] 0 mg IV ASDIRECTED PRN Naloxone [Narcan] Med 04/22/17 07:56 Active 0.1 mg IV ASDIRECTED PRN Ondansetron [Zofran] Med 04/21/17 20:22 Active 4 mg IVPUSH Q4H PRN Pantoprazole [ProTONIX IV] Med 04/22/17 07:30 Active 40 mg IVPUSH Q12H Tamsulosin [Flomax] Med 04/22/17 08:00 Active 0.4 mg PO BIDPC SCD [Sequential Compression Device] [OM.PC] Routine Oth 04/21/17 20:19 Ordered Medication Orders Hydromorphone HCl (Dilaudid Back End Developer 15 Mg In Ns 30 Ml) 0 mg IV ASDIRECTED PRN; Protocol PRN Reason: Pain Dextrose/Lactated Ringer's (Dextrose 5%-Lactated Ringers) 1,000 mls @ 125 mls/ hr IV ASDIRECTED LIEN Last Admin: 04/22/17 05:32 Dose: 125 mls/hr Infusion: 04/22/17 05:32 Dose: 125 mls/hr Admin: 04/21/17 23:00 Dose: 125 mls/hr Influenza Virus Vaccine (Fluzone Quad ) 60 mcg IM .ONCE ONE Stop: 04/22/17 23:46 Naloxone HCl (Narcan) 0.1 mg IV ASDIRECTED PRN PRN Reason: decreased respiratory rate Ondansetron HCl (Zofran) 4 mg IVPUSH Q4H PRN PRN Reason: Nausea/Vomiting Pantoprazole Sodium (Protonix Iv) 40 mg IVPUSH Q12H LIEN Last Admin: 04/22/17 08:51 Dose: 40 mg Sodium Chloride (Saline Flush) 10 ml FLUSH ASDIRECTED PRN PRN Reason: Keep Vein Open Last Admin: 04/21/17 17:05 Dose: 10 ml Tamsulosin HCl (Flomax) 0.4 mg PO BIDPC LIEN Last Admin: 04/22/17 08:51 Dose: 0.4 mg Plan: See above orders To Call Trey Roland MD when MRCP is done [place] [facility]
--- NOTE | 2017-04-22 10:19 | MR ---
MRCP. Indication: Abdominal pain. Technique:: MRCP images of the abdomen were obtained. No contrast was administered. Findings: There is mild intrahepatic delivery ductal dilatation. This is evident on prior CT. The com mon bile duct proximally measures 9-10 mm. No filling defect. It does taper distally. Prior cholecyst ectomy change. Pancreatic duct is nondilated. The liver grossly demonstrates no evidence for mass. No contrast was administered. Adrenal glands are within normal limits. No hydronephrosis. Impression: 1. Mild prominence of the proximal common bile duct status post cholecystectomy. No appreciable evide nce for filling defect.
[2017-04-22] MEDS: HYDROmorphone/Normal Saline 15 MG/30 ML PCA IV PRN (11:44)
[2017-04-22] MEDS ORDERED: Cyclobenzaprine 10 MG Tab PO PRN (15:24)
--- NOTE | 2017-04-22 19:12 | PCM.CONS ---
H&P History of Present Illness - General Date of Service: 04/22/17 Admit Problem/Dx: Source of Information: Patient, RN Notes Reviewed History Limitations: Reports: No Limitations - History of Present Illness Initial Comments - Free Text/Narative: Mr. Doshi is a 42-year-old gentleman who I been asked to see by Dr. Roland for further suggestions concerning evaluation and management of elevated liver enzymes. He is status post previous Lili-en-Y gastric bypass surgery, was feeling well relatively well until the evening prior to admission when he developed intense right upper quadrant abdominal pain. Pain did not radiate, he felt warm but did not document a fever and did not have chills or sweats. Pain was associated with nausea, he noted no precipitating or relieving factors. Pain recurred the following day and lasted several hours so he was admitted to the hospital by Dr. Roland for further evaluation. CT scan of the abdomen, abdominal ultrasound, and MRCP have shown no significant abnormalities to explain his pain. On admission was noted to have elevation in transaminase levels in the range of 100-200. This morning those levels of increased in the range to 500-600. Throughout the day today his pain is been better controlled and he is had no recurrence of the nausea. He is been able to eat without significant difficulty. He's never had previous symptoms were similar to this, but was told that the time of his gastric bypass surgery that he had steatohepatitis. There is no family history of significant liver disease and he denies any recent family members or close contacts of the been ill. He's had no significant travel and denies significant alcohol intake. Right Upper Abdomen Pain Score (Numeric/FACES): 7 - Related Data Allergies/Adverse Reactions: Allergies Allergy/AdvReac Type Severity Reaction Status Date / Time No Known Allergies Allergy Verified 04/21/17 15:20 Home Medications: Home Meds Ca Carbonate/Vitamin D3/Vit K [Calcium + D Soft Chewable Tab] 1 each PO BID [History] Cyanocobalamin (Vitamin B-12) [Vitamin B-12] 1,000 mcg SL DAILY 09/22/13 [ History] Omeprazole [Prilosec] 40 mg PO BID 09/22/13 [History] Pedi Multivit #22/Vit D3/Vit K [Multivitamins Chewables Tablet] 1 each PO BID [History] Vitamin B Complex 1 tab PO DAILY 09/22/13 [History] Cholecalciferol (Vitamin D3) [Vitamin D3] 3,000 unit PO DAILY 07/17/16 [History] Diclofenac Sodium [Voltaren 1% Gel] 1 applic TP QID PRN 07/17/16 [History] Iron,Carbonyl/Ascorbic Acid [Vitron-C Tablet] 1 tab PO DAILY 07/17/16 [History] Sertraline [Zoloft] 150 mg PO DAILY 07/17/16 [History] Magnesium Hydroxide [Milk of Magnesia] 30 ml PO DAILY #2 ml 07/23/16 [Rx] Sennosides/Docusate Sodium [Senna-S] 1 - 2 tab PO DAILY #100 tablet 07/23/16 [Rx ] Acetaminophen with Codeine [Tylenol with Codeine #4 Tablet] 1 tab PO Q6H PRN 07/24 [History] Cyclobenzaprine [Flexeril] 10 mg PO TID PRN 01/06/17 [History] Past Medical History HEENT History: Reports: Impaired Vision, Other (See Below) Other HEENT History: glasses. Ringing in the ears Respiratory History: Reports: Intubation, Previous Gastrointestinal History: Reports: Bowel Obstruction, Cholelithiasis, GERD, Hemorrhoids Musculoskeletal History: Reports: Arthritis, Back Pain, Chronic, Fracture Other Musculoskeletal History: left shoulder scapula fracture, no surgery rib nose finger Neurological History: Reports: Concussion, Migraines Psychiatric History: Reports: Anxiety, Depression, Panic Attack Endocrine/Metabolic History: Reports: Obesity/BMI 30+, Vitamin D Deficiency Hematologic History: Reports: Anemia, B12 Deficiency, Iron Deficiency Other Hematologic History: surgical related b12 def - takes b12 inj q month Oncologic (Cancer) History: Reports: None Dermatologic History: Reports: Other (See Below) Other Dermatologic History: Panniculectomy. tattoos - Infectious Disease History Infectious Disease History: Reports: Chicken Pox - Past Surgical History GI Surgical History: Reports: Appendectomy, Bariatric Procedure, Cholecystectomy , Colon, Colonoscopy, EGD, Hernia Repair/Other, Small Bowel Neurological Surgical History: Reports: None Social & Family History - Family History HEENT: Reports: None Cardiac: Reports: Hypertension, [place] GI: Reports: None : Reports: None Musculoskeletal: Reports: Arthritis Neurological: Reports: None Psychiatric: Reports: None Endocrine/Metabolic: Reports: Diabetes, Type I Oncologic: Reports: Other (See Below) Other Oncologic Family History: unknown - Tobacco Use Smoking Status *Q: Never Smoker Years of Tobacco use: 15 Packs/Tins Daily: 1 Used Tobacco, but Quit: Yes Month Tobacco Last Used: November Second Hand Smoke Exposure: Yes - Caffeine Use Caffeine Use: Reports: Coffee Other Caffeine Use: 1 cup coffee/day Caffeine Use Comment: Drinks about 16 ounces of coffee daily - Alcohol Use Days Per Week of Alcohol Use: 0 Number of Drinks Per Day: 2 Total Drinks Per Week: 0 - Recreational Drug Use Recreational Drug Use: No - Living Situation & Occupation Occupation: Employed H&P Review of Systems - Review of Systems: Review Of Systems: See Below General: Reports: Fever, Weakness HEENT: Reports: No Symptoms Pulmonary: Reports: No Symptoms Cardiovascular: Reports: No Symptoms Gastrointestinal: Reports: Abdominal Pain. Denies: Anorexia, Black Stool, Bloody Stool, Constipation, Diarrhea, Difficulty Swallowing, Distension Genitourinary: Reports: No Symptoms Musculoskeletal: Reports: No Symptoms Skin: Reports: No Symptoms Psychiatric: Reports: Depression Neurological: Reports: No Symptoms Hematologic/Lymphatic: Reports: No Symptoms Immunologic: Reports: No Symptoms Exam - Exam Exam: See Below - Vital Signs Vital Signs: Last Vital Signs Temp 98.3 F 04/22/17 15:20 Pulse 82 04/22/17 15:20 Resp 16 04/22/17 15:20 BP 95/57 L 04/22/17 15:20 Pulse Ox 97 04/22/17 15:20 Weight: 200 lb 7.003 oz - Exam General: Alert, Oriented, Cooperative HEENT: Conjunctiva Clear, Hearing Intact, Mucosa Moist & [place], Normal Nasal Septum, Posterior Pharynx Clear, Pupils Equal Neck: Supple, Trachea Midline, +2 Carotid Pulse wo Bruit Lungs: Clear to Auscultation, Normal Respiratory Effort Cardiovascular: Regular Rate, Regular Rhythm, Normal S1, Normal S2 GI/Abdominal Exam: Soft, No Organomegaly, Tender. No: Distended, Guarding, Rigid, Rebound Back Exam: Normal Inspection, Full Range of Motion Extremities: Non-Tender, No Pedal Edema Skin: Warm, Dry - Patient Data Lab Results Last 24 hrs: Laboratory Results - last 24 hr 04/22/17 04/22/17 Range/Units 03:30 03:30 WBC 4.4 L (4.5-11.0) K/uL RBC 4.78 (4.30-5.90) M/uL Hgb 14.9 (12.0-15.0) g/dL Hct 43.1 (40.0-54.0) % MCV 90 (80-98) fL MCH 31 (27-31) pg MCHC 35 (32-36) % Plt Count 170 (150-400) K/uL Sodium 140 (140-148) mmol/L Potassium 3.9 (3.6-5.2) mmol/L Chloride 103 (100-108) mmol/L Carbon Dioxide 29 (21-32) mmol/L Anion Gap 8.0 (5.0-14.0) mmol/L BUN 12 (7-18) mg/dL Creatinine 0.7 L (0.8-1.3) mg/dL Est Cr Clr Drug Dosing 125.32 mL/min Estimated GFR (MDRD) > 60 (>60) Glucose 55 L (74-106) mg/dL Calcium 9.3 (8.5-10.1) mg/dL Phosphorus 5.1 H (2.5-4.9) mg/dL Magnesium 2.1 (1.8-2.4) mg/dL Total Bilirubin 0.7 (0.2-1.0) mg/dL AST 647 H D (15-37) U/L ALT 594 H (12-78) U/L Alkaline Phosphatase 177 H (46-116) U/L Total Protein 6.5 (6.4-8.2) g/dL Albumin 3.8 (3.4-5.0) g/dL Globulin 2.7 (2.3-3.5) g/dL Albumin/Globulin Ratio 1.4 (1.2-2.2) Result Diagrams: 04/22/17 03:30 04/22/17 03:30 Consult PN Assessment/Plan Procedures: Procedures ASSAY OF LACTIC ACID (07/26/16) ASSAY OF LIPASE (12/12/16) C-REACTIVE PROTEIN (04/24/15) CHEST X-RAY 2VW FRONTAL&LATL (12/21/13) COMPLETE CBC AUTOMATED (06/10/16) COMPLETE CBC W/AUTO DIFF WBC (12/12/16) COMPREHEN METABOLIC PANEL (12/12/16) CONTRST X-RAY UPPR GI TRACT (05/03/15) CT ABD & PELV W/CONTRAST (12/12/16) CULTURE SCREEN ONLY (01/08/17) DIAGNOSTIC COLONOSCOPY (01/08/17) EGD BIOPSY SINGLE/MULTIPLE (01/08/17) EMERGENCY DEPT VISIT (12/12/16) EMERGENCY DEPT VISIT (02/15/16) EMERGENCY DEPT VISIT (04/24/15) EMERGENCY DEPT VISIT (03/04/15) HYDRATE IV INFUSION ADD-ON (12/12/16) HYDRATION IV INFUSION INIT (04/24/15) ROUTINE VENIPUNCTURE (12/12/16) THER/PROPH/DIAG INJ IV PUSH (12/12/16) THER/PROPH/DIAG INJ SC/IM (02/15/16) THER/PROPH/DIAG IV INF INIT (07/03/16) TX/PRO/DX INJ NEW DRUG ADDON (12/12/16) URINALYSIS AUTO W/SCOPE (07/26/16) X-RAY EXAM OF ABDOMEN (03/04/15) Problem List Initiated/Reviewed/Updated: Yes My Orders Last 24 Hours: My Active Orders 04/22/17 19:15 Lactated Ringers [Ringers, Lactated] 1,000 ml IV ASDIRECTED Plan: ASSESSMENT AND RECOMMENDATIONS TRANSAMINASE ELEVATION-associated with a more modest elevation in alkaline phosphatase and normal bilirubin. Diagnostic evaluation including CT scan of the abdomen, abdominal ultrasound, and MRCP are unremarkable as to the underlying etiology of abnormal laboratory studies and right upper quadrant abdominal pain. Patient denies significant alcohol intake and has no family history of liver disease. He does have a known history of steatohepatitis which was diagnosed at the time of his gastric bypass surgery. Most likely etiology for pain and elevated liver enzymes would seem to be medication effect versus acute infectious process. -Repeat transaminase levels in a.m. -Discontinue omeprazole and sertraline -Acute hepatitis serology, Lyme serology, serology for anaplasmosis, TSH, and ferritin -Avoid acetaminophen use ESOPHAGEAL REFLUX -Discontinue omeprazole -Zantac 300 mg by mouth twice a day DEPRESSION -Discontinue sertraline -Consider alternative therapy with Celexa Requesting Provider: BECKER Date Consult Requested: 04/22/17 Reason for Consult: Liver enzyme elevation Patient History Reviewed: Yes Admission H&P Reviewed: Yes
[2017-04-22] MEDS ORDERED: Lactated Ringers 1,000 ML IV SCH (19:15)
[2017-04-22] MEDS ORDERED: FLU Vacc QS 2017-18 (36mos UP)/PF 60 MCG/0.5 ML Syringe IM ONE (23:45)
[2017-04-23] MEDS ORDERED: Dexamethasone 4 MG Tab PO ONE (00:52)
[2017-04-23] MEDS ORDERED: traMADol 50 MG Tab PO ONE (00:53)
[2017-04-23] MEDS: HYDROmorphone/Normal Saline 15 MG/30 ML PCA IV PRN (01:07)
--- NOTE | 2017-04-23 02:03 | PCM.SN ---
- Free Text/Narrative Note: time: 00:51 call from [address] [place] [address]; Mr. Doshi complaints of headache a; head pain p; give Tramadol 50 mg and Dexamethasone 4 mg po now. allow to rest, continue present plan of care.
[2017-04-23] MEDS ORDERED: traMADol 50 MG Tab PO PRN (07:25)
[2017-04-23] MEDS: Tamsulosin 0.4 MG Cap.ER PO SCH (08:04)
--- NOTE | 2017-04-23 08:58 | PN ---
DATE OF SERVICE: 04/23/2017 SUBJECTIVE: Med states his pain is controlled. He did have a headache last night and was given one dose of dexamethasone and tramadol. He states he is a caffeine drinker and that usually helps with his headache. He routinely is on, he states something for his headaches. There is nothing recorded on his home medications list and he takes it at bedtime. He reports some abdominal pain is better. Liver function test results were reviewed. CT was negative. He has been afebrile, active. Parkinson catheter remains in. He has been on Flomax. Oral intake was 5280, urine output 6550. REVIEW OF SYSTEMS: Remainder of review of systems negative for any pertinent positives and negatives. OBJECTIVE: GENERAL: Med Doshi is a 42-year-old male. He is alert and orientated, active. VITAL SIGNS: TPR is 97.7, 95, 16, blood pressure 118/65. HEENT: Negative. NECK: Supple. HEART: Regular rate and rhythm. LUNGS: Clear. ABDOMEN: Soft, nontender. EXTREMITIES: Without peripheral edema. Parkinson catheter intact. ASSESSMENT: Elevated liver function tests. PLAN: Discontinue [employer] and continuous pulse ox. Saline lock IV. Discontinue Parkinson catheter. Tramadol 50 mg q.6 hours p.r.n. pain. We will evaluate p.r.n. or in the a.m. Haven Regalado PA-C /[id number]
[2017-04-23] MEDS ORDERED: traMADol 50 MG Tab PO STA (10:00)
[2017-04-23] MEDS ORDERED: traMADol 50 MG Tab PO SCH (12:00)
[2017-04-23] MEDS ORDERED: FLU Vacc QS 2017-18 (36mos UP)/PF 60 MCG/0.5 ML Syringe IM ONE (14:00)
[2017-04-23 14:14] VITALS: BP 124/73
--- NOTE | 2017-04-23 17:02 | PCM.DCSUM1 ---
Discharge Summary - Hospital Course Brief History: Mr. Doshi is a 42-year-old gentleman who is admitted as a direct admission from the clinic because of severe right upper quadrant abdominal pain. - Discharge Data Discharge Date: 04/23/17 Discharge Disposition: Home, Self-Care 01 Condition: Fair - Discharge Diagnosis/Problem(s) (1) Drug-induced hepatitis SNOMED Code(s): 557788069 ICD Code: K71.6 - TOXIC LIVER DISEASE WITH HEPATITIS, NOT ELSEWHERE CLASSIFIED; T50.905A - ADVERSE EFFECT OF UNSP DRUG/MEDS/BIOL SUBST, INIT Status: Acute (2) Opioid use agreement exists SNOMED Code(s): 782736769 ICD Code: Z02.89 - ENCOUNTER FOR OTHER ADMINISTRATIVE EXAMINATIONS Status: Chronic Onset Date: ~11/25/16 (3) Bariatric surgery status SNOMED Code(s): 669254013, 180439379 ICD Code: Z98.84 - BARIATRIC SURGERY STATUS Status: Chronic - Patient Summary/Data Consults: Consultations 04/22/17 13:09 Consult to Physician [CONS] Routine Consulting Provider: Gilbert Kinsey Call Completed to Consulting Physician: Yes Reason for Consult: elevated liver function test & right upper quad pain Person Notified: [email or web address], Date Notified: 04/22/17 Time Notified: 13:10 Hospital Course: Mr. Doshi was admitted by Dr. Roland for further evaluation and management of severe right upper quadrant abdominal pain. Pain started approximately 24 hours prior to admission, it was very intense and located in the right upper quadrant with no radiation. He denied any precipitating or relieving factors. Laboratory studies obtained at the time of admission did show elevation in his transaminase levels in the range of 100 200 with also an elevation in his alkaline phosphatase, bilirubin was within normal range. CT scan of the abdomen showed no obvious abnormalities to explain so an ultrasound was performed which also showed no obvious abnormalities. He's status post previous Lili-en-Y gastric bypass surgery as well as cholecystectomy. MRCP was obtained and showed no evidence of obstructing lesions within the common duct or biliary ducts. The day after admission his transaminase levels increased to the 5-600 range, by that time his abdominal pain had improved significantly and essentially resolved. On the morning of discharge his AST level had improved significantly, ALT level modestly improved and alkaline phosphatase level still mildly elevated. He was tolerating a regular diet and walking in the halls without significant symptoms. Medications were all reviewed, Tylenol was held, omeprazole and sertraline were discontinued because of potential hepatic toxicity. Labs were sent including acute hepatitis profile which is pending at the time of discharge. Was felt most likely that is transaminitis was likely secondary to medication effect. He will be discharged home on ranitidine instead of the omeprazole and Celexa instead of the sertraline. Because of the potential hepatotoxic effect of acetaminophen his Tylenol for was discontinued and he will be discharged on limited amount of oxycodone. He will resume his usual diet and activity will be as tolerated. Follow-up will be scheduled with Haven Regalado in [place] for April 27, CMP will be obtained at the time of that appointment. Follow-up appointment will be scheduled with his primary care provider within one week. - Patient Instructions Diet: Usual Diet as Tolerated, No Alcoholic Beverages Activity: As Tolerated Other/Special Instructions: Please schedule a follow-up appointment with Haven Regalado for April 27 at [facility] in [facility]. Please order a CMP to be drawn at the time of that appointment. Please schedule a follow-up appointment with the patient's primary care provider Dr. Hutchison [facility] in [facility] within the next week. - Discharge Plan Prescriptions/Med Rec: Citalopram Hydrobromide [Celexa] 20 mg PO DAILY #30 tablet oxyCODONE 5 mg PO TID PRN #20 tab PRN Reason: Pain Ranitidine HCl [Ranitidine] 300 mg PO DAILY #30 tablet Tamsulosin [Flomax] 0.4 mg PO DAILY #30 cap.er Home Medications: Home Meds Ca Carbonate/Vitamin D3/Vit K [Calcium + D Soft Chewable Tab] 1 each PO BID [History] Cyanocobalamin (Vitamin B-12) [Vitamin B-12] 1,000 mcg SL DAILY 09/22/13 [ History] Pedi Multivit #22/Vit D3/Vit K [Multivitamins Chewables Tablet] 1 each PO BID [History] Vitamin B Complex 1 tab PO DAILY 09/22/13 [History] Cholecalciferol (Vitamin D3) [Vitamin D3] 3,000 unit PO DAILY 07/17/16 [History] Diclofenac Sodium [Voltaren 1% Gel] 1 applic TP QID PRN 07/17/16 [History] Iron,Carbonyl/Ascorbic Acid [Vitron-C Tablet] 1 tab PO DAILY 07/17/16 [History] Magnesium Hydroxide [Milk of Magnesia] 30 ml PO DAILY #2 ml 07/23/16 [Rx] Sennosides/Docusate Sodium [Senna-S] 1 - 2 tab PO DAILY #100 tablet 07/23/16 [Rx ] Cyclobenzaprine [Flexeril] 10 mg PO TID PRN 01/06/17 [History] Citalopram Hydrobromide [Celexa] 20 mg PO DAILY #30 tablet 04/23/17 [Rx] Ranitidine HCl [Ranitidine] 300 mg PO DAILY #30 tablet 04/23/17 [Rx] Tamsulosin [Flomax] 0.4 mg PO DAILY #30 cap.er 04/23/17 [Rx] oxyCODONE 5 mg PO TID PRN #20 tab 04/23/17 [Rx] Patient Handouts: Oxycodone tablets or capsules Referrals: Jovanni Hutchison MD [Primary Care Provider] - - Patient Data Vitals - Most Recent: Last Vital Signs Temp 97.7 F 04/23/17 12:16 Pulse 87 04/23/17 12:16 Resp 16 04/23/17 12:16 BP 124/73 04/23/17 12:16 Pulse Ox 96 04/23/17 12:16 Weight - Most Recent: 200 lb 7.003 oz I&O - Last 24 hours: Intake & Output 04/23/17 04/23/17 04/23/17 06:59 14:59 22:59 Intake Total 5205 174 Output Total 3300 1150 Balance 1905 -976 Lab Results - Last 24 hrs: Laboratory Results - last 24 hr 04/23/17 04/23/17 Range/Units 04:32 04:32 WBC 6.3 (4.5-11.0) K/uL RBC 4.56 (4.30-5.90) M/uL Hgb 14.0 (12.0-15.0) g/dL Hct 42.6 (40.0-54.0) % MCV 93 (80-98) fL MCH 31 (27-31) pg MCHC 33 (32-36) % Plt Count 197 (150-400) K/uL Sodium 139 L (140-148) mmol/L Potassium 5.2 (3.6-5.2) mmol/L Chloride 102 (100-108) mmol/L Carbon Dioxide 33 H (21-32) mmol/L Anion Gap 9.2 (5.0-14.0) mmol/L BUN 11 (7-18) mg/dL Creatinine 0.7 L (0.8-1.3) mg/dL Est Cr Clr Drug Dosing 125.96 mL/min Estimated GFR (MDRD) > 60 (>60) Glucose 85 (74-106) mg/dL Calcium 9.6 (8.5-10.1) mg/dL Phosphorus 4.8 (2.5-4.9) mg/dL Magnesium 2.1 (1.8-2.4) mg/dL Total Bilirubin 0.5 (0.2-1.0) mg/dL AST 239 H (15-37) U/L ALT 585 H (12-78) U/L Alkaline Phosphatase 222 H (46-116) U/L Total Protein 6.8 (6.4-8.2) g/dL Albumin 3.8 (3.4-5.0) g/dL Globulin 3.0 (2.3-3.5) g/dL Albumin/Globulin Ratio 1.3 (1.2-2.2) Amylase 51 (25-115) U/L Lipase 345 (73-393) U/L Med Orders - Current: Current Medications Discontinued Medications Cyclobenzaprine HCl (Flexeril) 10 mg PO Q8H PRN PRN Reason: Pain Last Admin: 04/22/17 15:49 Dose: 10 mg Dexamethasone (Dexamethasone) 4 mg PO ONETIME ONE Stop: 04/23/17 00:53 Last Admin: 04/23/17 01:07 Dose: 4 mg Hydromorphone HCl (Dilaudid Steel Rod Buster 15 Mg In Ns 30 Ml) 15 mg IV ASDIRECTED LIEN PRN Reason: Protocol Last Admin: 04/21/17 23:00 Dose: 15 mg Hydromorphone HCl (Dilaudid Steel Rod Buster 15 Mg In Ns 30 Ml) 0 mg IV ASDIRECTED PRN; Protocol PRN Reason: Pain Last Admin: 04/23/17 01:07 Dose: 15 mg Hydroxyzine HCl (Vistaril) 100 mg IM ONETIME ONE Stop: 04/21/17 22:08 Last Admin: 04/21/17 22:28 Dose: 100 mg Sodium Chloride (Normal Saline) 80 mls @ 3 mls/sec IV ASDIRECTED [facility] Last Admin: 04/21/17 17:08 Dose: 3 mls/sec Dextrose/Lactated Ringer's (Dextrose 5%-Lactated Ringers) 1,000 mls @ 125 mls/ hr IV ASDIRECTED [facility] Last Admin: 04/22/17 14:27 Dose: 125 mls/hr Lactated Ringer's (Ringers, Lactated) 1,000 mls @ 25 mls/hr IV ASDIRECTED [facility] Influenza Virus Vaccine (Fluzone Quad ) 60 mcg IM .ONCE ONE Stop: 04/22/17 23:46 Last Admin: 04/22/17 23:19 Dose: Not Given Influenza Virus Vaccine (Fluzone Quad ) 60 mcg IM .ONCE ONE Stop: 04/23/17 14:01 Last Admin: 04/23/17 13:00 Dose: 60 mcg Iopamidol (Isovue-300 (61%)) 142 ml IV . DIRECTED [facility] Last Admin: 04/21/17 17:08 Dose: 142 ml Lidocaine HCl (Xylocaine 2% Jelly) 10 ml MUCMEM ONETIME ONE Stop: 04/22/17 05:24 Last Admin: 04/22/17 05:32 Dose: 10 ml Meperidine HCl (Demerol) 100 mg IM ONETIME ONE Stop: 04/21/17 22:08 Last Admin: 04/21/17 22:44 Dose: 100 mg Naloxone HCl (Narcan) 0.1 mg IV ASDIRECTED PRN PRN Reason: decreased respiratory rate Ondansetron HCl (Zofran) 4 mg IVPUSH Q4H PRN PRN Reason: Nausea/Vomiting Pantoprazole Sodium (Protonix Iv) 40 mg IVPUSH Q12H [facility] Last Admin: 04/22/17 08:51 Dose: 40 mg Ranitidine HCl (Zantac) 300 mg PO BID [facility] Last Admin: 04/23/17 08:37 Dose: 300 mg Sodium Chloride (Saline Flush) 10 ml FLUSH ASDIRECTED PRN PRN Reason: Keep Vein Open Last Admin: 04/21/17 17:05 Dose: 10 ml Tamsulosin HCl (Flomax) 0.4 mg PO BIDPC LIEN Last Admin: 04/23/17 08:04 Dose: 0.4 mg Tramadol HCl (Ultram) 50 mg PO ONETIME ONE Stop: 04/23/17 00:54 Last Admin: 04/23/17 01:06 Dose: 50 mg Tramadol HCl (Ultram) 50 mg PO Q4H PRN PRN Reason: Pain Last Admin: 04/23/17 08:30 Dose: 50 mg Tramadol HCl (Ultram) 50 mg PO NOW STA Stop: 04/23/17 10:01 Last Admin: 04/23/17 10:08 Dose: 50 mg Tramadol HCl (Ultram) 100 mg PO Q6H [facility] Last Admin: 04/23/17 12:14 Dose: 100 mg *Q Meaningful Use (DIS) - VTE *Q VTE Criteria *Q: - Stroke *Q Stroke Criteria *Q: - AMI *Q AMI Criteria *Q:
== END 2017-04-23 13:35 | disposition home or self-care (01) | DRG 443 ==
LOC: JP.ED 14:30 → JP.MS 19:58
PROVIDERS: ADMIT Surgery; ATTEND Surgery
DX: K71.6 Toxic liver disease with hepatitis, not elsewhere classified (principal); T50.905A Adverse effect of unspecified drugs, medicaments and biological substances, initial encounter; Z23 Encounter for immunization; Z98.84 Bariatric surgery status; Z98.0 Intestinal bypass and anastomosis status; E53.8 Deficiency of other specified B group vitamins; E55.9 Vitamin D deficiency, unspecified; F32.9 Major depressive disorder, single episode, unspecified; F41.9 Anxiety disorder, unspecified; M19.90 Unspecified osteoarthritis, unspecified site; M54.9 Dorsalgia, unspecified; G89.29 Other chronic pain; K21.9 Gastro-esophageal reflux disease without esophagitis; H54.7 Unspecified visual loss; Z87.891 Personal history of nicotine dependence; R10.11 Right upper quadrant pain; Z87.898 Personal history of other specified conditions; R51 Headache
CPT/HCPCS: 36415; 51702; 74177; 74181; 74181-26; 76705; 80053; 81001; 82150; 83690; 83735; 84100; 85025; 85027; 90686; 94762; 99285-25; A9270-GY; C9113; J1170; J2175; J3410; J7030; J7042; J7050; J8540

== ENCOUNTER 2019-03-05 11:33 | Emergency (ER) | payer BC ==
[2019-03-05 11:54] VITALS: BP 142/83; PULSE 92
[2019-03-05] MEDS ORDERED: Sodium Chloride 0.9% 10 ML Syringe FLUSH PRN (12:09)
--- NOTE | 2019-03-05 12:09 | EDM.PDOC ---
ED HPI GENERAL MEDICAL PROBLEM - General Chief Complaint: Gastrointestinal Problem Stated Complaint: NAUSEOUS, FATIGUE Time Seen by Provider: 03/05/19 11:52 Source of Information: Reports: Patient History Limitations: Reports: No Limitations - History of Present Illness INITIAL COMMENTS - FREE TEXT/NARRATIVE: Med is a 43 year old male, hx of Lili en y, presents to the ED today with c/o nausea, off feeling in his stomach since Wednesday, has had some mild diarrhea, no hematemesis or hematochezia. Back pain which is not unusual. Decreased appetite, eating little, trying to stay hydrated but today felt fatigued. Patient denies any significant abdominal pain. Small emesis on Wednesday, none since. Patient has not taken any medications for his symptoms, rest seems to make him feel better. Denies fever but has felt chilled. Onset: Gradual (3) - Related Data Allergies Allergy/AdvReac Type Severity Reaction Status Date / Time No Known Allergies Allergy Verified 12/23/18 10:41 Home Meds: Home Meds Ca Carbonate/Vitamin D3/Vit K [Calcium + D Soft Chewable Tab] 1 each PO BID [History] Cyanocobalamin (Vitamin B-12) [Vitamin B-12] 2,500 mcg SL DAILY 09/22/13 [ History] Pedi Multivit #22/Vit D3/Vit K [Multivitamins Chewables Tablet] 1 each PO BID [History] Vitamin B Complex 2 tab PO DAILY 09/22/13 [History] Cholecalciferol (Vitamin D3) [Vitamin D3] 3,000 unit PO DAILY 07/17/16 [History] Iron,Carbonyl/Ascorbic Acid [Vitron-C Tablet] 1 tab PO DAILY 07/17/16 [History] Cyclobenzaprine [Flexeril] 10 mg PO TID PRN 01/06/17 [History] Magnesium Citrate [Citrate of Magnesia] 296 ml PO ASDIRECTED 12/19/18 [History] Omeprazole 40 mg PO DAILY 12/19/18 [History] Sennosides/Docusate Sodium [Senna-S] 2 tab PO DAILY 12/19/18 [History] Sertraline [Zoloft] 200 mg PO DAILY 12/19/18 [History] Zinc Gluconate [Zinc] 50 mg PO DAILY 12/19/18 [History] Past Medical History HEENT History: Reports: Impaired Vision, Other (See Below) Other HEENT History: glasses. Ringing in the ears Respiratory History: Reports: Intubation, Previous Gastrointestinal History: Reports: Bowel Obstruction, Cholelithiasis, GERD, Hemorrhoids Musculoskeletal History: Reports: Arthritis, Back Pain, Chronic, Fracture Other Musculoskeletal History: left shoulder scapula fracture, no surgery rib nose finger Neurological History: Reports: Concussion, Migraines Psychiatric History: Reports: Anxiety, Depression, Panic Attack Endocrine/Metabolic History: Reports: Obesity/BMI 30+, Vitamin D Deficiency Hematologic History: Reports: Anemia, B12 Deficiency, Iron Deficiency Other Hematologic History: surgical related b12 def - takes b12 inj q month Oncologic (Cancer) History: Reports: None Dermatologic History: Reports: Other (See Below) Other Dermatologic History: Panniculectomy. tattoos - Infectious Disease History Infectious Disease History: Reports: Chicken Pox - Past Surgical History GI Surgical History: Reports: Appendectomy, Bariatric Procedure, Cholecystectomy , Colon, Colonoscopy, EGD, Hernia Repair/Other, Small Bowel Neurological Surgical History: Reports: None Social & Family History - Family History HEENT: Reports: None Cardiac: Reports: Hypertension, [place] GI: Reports: None : Reports: None Musculoskeletal: Reports: Arthritis Neurological: Reports: None Psychiatric: Reports: None Endocrine/Metabolic: Reports: Diabetes, Type I Oncologic: Reports: Other (See Below) Other Oncologic Family History: unknown - Caffeine Use Caffeine Use: Reports: Coffee Other Caffeine Use: 1 cup coffee/day Caffeine Use Comment: Drinks about 16 ounces of coffee daily - Living Situation & Occupation Occupation: Employed ED ROS GENERAL - Review of Systems Review Of Systems: ROS reveals no pertinent complaints other than HPI. ED EXAM, GI/ABD - Physical Exam Exam: See Below Exam Limited By: No Limitations General Appearance: Alert, WD/WN, No Apparent Distress Eyes: Bilateral: EOMI Ears: Normal External Exam Nose: Normal Inspection Throat/Mouth: Normal Inspection, Normal Oropharynx Head: Atraumatic, Normocephalic Neck: Normal Inspection, Supple Respiratory/Chest: No Respiratory Distress, Lungs Clear Cardiovascular: Normal Peripheral Pulses, Regular Rate, Rhythm GI/Abdominal Exam: Normal Bowel Sounds, Soft, Non-Tender, Distended (mild) Extremities: Normal Inspection Neurological: Alert, Oriented, CN II-XII Intact Psychiatric: Normal Affect, Normal Mood Skin Exam: Warm, Diaphoretic, Pallor Lymphatic: No Adenopathy Course - Vital Signs Last Recorded V/S: Last Vital Signs Temp 36.4 C 03/05/19 12:02 Pulse 92 03/05/19 12:02 Resp 19 03/05/19 12:02 BP 142/83 H 03/05/19 12:02 Pulse Ox 98 03/05/19 12:02 Med is a 43 year old male with hx of Lili en y who presents to the ED today with a 3 day hx of feeling unwell. Please refer to HPI and focused exam. Patient arrives here hemodynamically stable, afebrile, diaphoretic and pale. Doubtful this is an obstruction although with significant abdominal surgical hx certainly a possibility, ? Viral gastroenteritis, no focal tenderness on exam, unlikely diverticulitis. PIV established, patient given IV fluids, Zofran and Dilaudid. Blood work and CT of abdomen obtained. Patient given Ativan after CT scan for c/o RUQ pain. Blood work very reassuring with normal white count, left shift, low lymphocytes, negative CRP, normal lipase. CMP returns unremarkable, normal LFT's and bilirubin. CT scan unremarkable. Likely a viral process. Given reassuring labs and scan I feel patient is stable to be discharged home. Will send patient out with Zofran for nausea and Percocet for pain control. Patient able to eat and drink here with no issues prior to discharge. Patient to follow up with PCP this week, reasons to return to the ED discussed, patient agreeable to plan of care and discharged in stable condition. - Orders/Labs/Meds Orders: Active Orders 24 hr Category Date Time Status Peripheral IV Care [RC] . DIRECTED Care 03/05/19 12:09 Active HYDROmorphone [Dilaudid] Med 03/05/19 12:10 Active 0.5 mg IVPUSH Q1H PRN Sodium Chloride 0.9% [Normal Saline] 1,000 ml Med 03/05/19 12:15 Active IV ASDIRECTED Sodium Chloride 0.9% [Normal Saline] 85 ml Med 03/05/19 12:45 Active IV ASDIRECTED Sodium Chloride 0.9% [Saline Flush] Med 03/05/19 12:09 Active 10 ml FLUSH ASDIRECTED PRN Peripheral IV Insertion Adult [OM.PC] Routine Oth 03/05/19 12:09 Ordered Medication Orders Hydromorphone HCl (Dilaudid) 0.5 mg IVPUSH Q1H PRN PRN Reason: Pain Last Admin: 03/05/19 12:55 Dose: 0.5 mg Sodium Chloride (Normal Saline) 1,000 mls @ 999 mls/hr IV ASDIRECTED LIEN Last Admin: 03/05/19 12:55 Dose: 999 mls/hr Sodium Chloride (Normal Saline) 85 mls @ 3 mls/sec IV ASDIRECTED LIEN Last Admin: 03/05/19 13:04 Dose: 3 mls/sec Sodium Chloride (Saline Flush) 10 ml FLUSH ASDIRECTED PRN PRN Reason: Keep Vein Open Last Admin: 03/05/19 15:50 Dose: 10 ml Labs: Laboratory Tests 03/05/19 03/05/19 03/05/19 Range/Units 12:15 12:15 12:15 WBC 5.5 (4.5-11.0) K/uL RBC 5.01 (4.30-5.90) M/uL Hgb 14.9 (12.0-15.0) g/dL Hct 44.2 (40.0-54.0) % MCV 88 (80-98) fL MCH 30 (27-31) pg MCHC 34 (32-36) % Plt Count 264 (150-400) K/uL Neut % (Auto) 70 H (36-66) % Lymph % (Auto) 20 L (24-44) % Bowman % (Auto) 8 H (2-6) % Eos % (Auto) 2 (2-4) % Baso % (Auto) 0 (0-1) % Sodium 142 (140-148) mmol/L Potassium 4.2 (3.6-5.2) mmol/L Chloride 106 (100-108) mmol/L Carbon Dioxide 28 (21-32) mmol/L Anion Gap 7.8 (5.0-14.0) mmol/L BUN 16 (7-18) mg/dL Creatinine 0.7 L (0.8-1.3) mg/dL Est Cr Clr Drug Dosing 124.06 mL/min Estimated GFR (MDRD) > 60 (>60) Glucose 92 (74-106) mg/dL Lactic Acid 1.3 (0.4-2.0) mmol/L Calcium 8.8 (8.5-10.1) mg/dL Total Bilirubin 0.3 (0.2-1.0) mg/dL AST 18 D (15-37) U/L ALT 26 D (12-78) U/L Alkaline Phosphatase 103 (46-116) U/L C-Reactive Protein 0.00 (0.0-0.3) mg/dL Total Protein 6.6 (6.4-8.2) g/dL Albumin 3.9 (3.4-5.0) g/dL Globulin 2.7 (2.3-3.5) g/dL Albumin/Globulin Ratio 1.4 (1.2-2.2) Lipase 150 (73-393) U/L Meds: Medications Generic Name Dose Route Start Last Admin Trade Name Freq PRN Reason Stop Dose Admin Hydromorphone HCl 0.5 mg 03/05/19 12:10 03/05/19 12:55 Dilaudid IVPUSH 0.5 mg Q1H PRN Administration Pain Sodium Chloride 1,000 mls @ 999 mls/hr 03/05/19 12:15 03/05/19 12:55 Normal Saline IV 999 mls/hr ASDIRECTED LIEN Administration Sodium Chloride 85 mls @ 3 mls/sec 03/05/19 12:45 03/05/19 13:04 Normal Saline IV 3 mls/sec ASDIRECTED LIEN Administration Sodium Chloride 10 ml 03/05/19 12:09 03/05/19 15:50 Saline Flush FLUSH 10 ml ASDIRECTED PRN Administration Keep Vein Open Discontinued Medications Generic Name Dose Route Start Last Admin Trade Name Juan R PRN Reason Stop Dose Admin Fentanyl 50 mcg 03/05/19 13:45 03/05/19 15:47 Sublimaze IVPUSH 03/05/19 13:46 50 mcg ONETIME ONE Administration Iopamidol 150 ml 03/05/19 12:45 03/05/19 13:05 Isovue-300 (61%) IV 150 ml . DIRECTED LIEN Administration Lorazepam 1 mg 03/05/19 13:22 03/05/19 13:27 Ativan IVPUSH 03/05/19 13:23 1 mg ONETIME ONE Administration Ondansetron HCl 4 mg 03/05/19 12:10 03/05/19 12:55 Zofran IVPUSH 03/05/19 12:11 4 mg ONETIME ONE Administration Sodium Chloride 10 ml 03/05/19 12:36 03/05/19 13:04 Saline Flush FLUSH 03/05/19 12:37 10 ml ONETIME ONE Administration Departure - Departure Time of Disposition: 16:30 Disposition: Home, Self-Care 01 Condition: Good Clinical Impression: Gastroenteritis - Discharge Information Instructions: Viral Gastroenteritis, Adult Referrals: PCP,None [Primary Care Provider] - Forms: ED Department Discharge Additional Instructions: Zofran as needed for nausea Percocet for pain if Tylenol/Ibuprofen ineffective, this is a narcotic, do not drive if you take it. Make sure you stay well hydrated. Follow up in clinic later this week for re-evaluation. Return here with any worsening and/or new symptoms. - My Orders Last 24 Hours: My Active Orders 03/05/19 12:09 Peripheral IV Care [RC] . DIRECTED Sodium Chloride 0.9% [Saline Flush] 10 ml FLUSH ASDIRECTED PRN Peripheral IV Insertion Adult [OM.PC] Routine 03/05/19 12:10 HYDROmorphone [Dilaudid] 0.5 mg IVPUSH Q1H PRN 03/05/19 12:15 Sodium Chloride 0.9% [Normal Saline] 1,000 ml IV ASDIRECTED 03/05/19 12:45 Sodium Chloride 0.9% [Normal Saline] 85 ml IV ASDIRECTED - Assessment/Plan Last 24 Hours: My Active Orders 03/05/19 12:09 Peripheral IV Care [RC] . DIRECTED Sodium Chloride 0.9% [Saline Flush] 10 ml FLUSH ASDIRECTED PRN Peripheral IV Insertion Adult [OM.PC] Routine 03/05/19 12:10 HYDROmorphone [Dilaudid] 0.5 mg IVPUSH Q1H PRN 03/05/19 12:15 Sodium Chloride 0.9% [Normal Saline] 1,000 ml IV ASDIRECTED 03/05/19 12:45 Sodium Chloride 0.9% [Normal Saline] 85 ml IV ASDIRECTED
[2019-03-05] MEDS ORDERED: Ondansetron 4 MG/2 ML SDV IVPUSH ONE (12:10)
[2019-03-05] MEDS ORDERED: HYDROmorphone 0.5 MG/0.5 ML Syringe IVPUSH PRN (12:10)
[2019-03-05] MEDS ORDERED: Sodium Chloride 0.9% 1,000 ML IV SCH (12:15)
[2019-03-05] MEDS ORDERED: Iopamidol 612 MG/ML 150 ML Bottle IV SCH (12:45)
[2019-03-05] MEDS: Sodium Chloride 0.9% 10 ML Syringe FLUSH ONE ×2 (12:55→13:04)
[2019-03-05] MEDS ORDERED: LORazepam 2 MG/ML SDV IVPUSH ONE (13:22)
[2019-03-05] MEDS ORDERED: fentaNYL 100 MCG/2 ML SDV IVPUSH ONE (13:45)
--- NOTE | 2019-03-05 13:56 | CRLCT ---
INDICATION: History of Lili-en-Y, now with distention, vomiting and nausea TECHNIQUE: CT abdomen and pelvis acquired with IV contrast. Approximately 150 cc of Omnipaque 350 contrast was administered intravenously. COMPARISON: CT abdomen and pelvis 04/21/2017 FINDINGS: The visualized portions of the lung bases are clear. The gallbladder is surgically absent. There is stable mild intrahepatic and extrahepatic biliary dilatation. The liver is otherwise unremarkable. The spleen, pancreas and adrenals are within normal limits. The kidneys enhance symmetrically without hydronephrosis. 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 There are no dilated loops of small bowel to suggest obstruction. A few minimally prominent fluid-filled loops of small bowel are seen within the pelvis. The appendix is not visualized.There is no intraperitoneal free air or fluid. The visualized osseous structures are unremarkable for patient age. IMPRESSION: Postsurgical changes of gastric bypass. A few minimally prominent fluid-filled loops of small bowel within the pelvis are nonspecific and may be seen with gastroenteritis. Otherwise negative for bowel obstruction or other acute intra-abdominal or pelvic process. Dictated by Mirian Mayfield MD @ 03/05/2019 1:55:26 PM Please note that all CT scans at this facility use dose modulation, iterative reconstruction, and/or weight-based dosing when appropriate to reduce radiation dose to as low as reasonably achievable. Dictated by: Mirian Mayfield MD @ 03/05/2019 13:55:52 (Electronically Signed)
== END 2019-03-05 18:22 | disposition home or self-care (01) ==
LOC: JP.ED 11:33
DX: K52.9 Noninfective gastroenteritis and colitis, unspecified (principal); K21.9 Gastro-esophageal reflux disease without esophagitis; E66.9 Obesity, unspecified; D64.9 Anemia, unspecified; F41.9 Anxiety disorder, unspecified; F32.9 Major depressive disorder, single episode, unspecified; Z79.899 Other long term (current) drug therapy; Z90.49 Acquired absence of other specified parts of digestive tract; Z98.84 Bariatric surgery status
CPT/HCPCS: 36415; 74177; 80053; 83605; 83690; 85025; 86140; 96361; 96374; 96375; 99284-25; J1170; J2060; J2405; J3010; J7030